=== PATIENT | female | born 1980 ===

== ENCOUNTER 2016-05-03 04:07 | Emergency (ER) | payer OTHER ==
--- NOTE | 2016-05-03 06:34 | ED NURSING NOTES ---
Clinical Report - Nurses [facility] [address] [place] [address] 05/03/2016 4:07 Patient: SHAWNA ROSALES TRIAGE Triage time 04:14. Acuity: LEVEL 4. Chief Complaint: ABDOMINAL PAIN, NAUSEA, VOMITING and DIARRHEA. --04:18 Krista Ham R.N. 04:14 05/03/16. BP: 178/101. HR: 73. RR: 17 (regular and unlabored). O2 saturation: 100% on room air. Temp: 98.7 F (oral). Negron-Dunbar pain scale: 6/10. --04:18 Krista Ham R.N. Weight: 81.6 kg stated. Height/Length: 60 inches Per Patient. BMI: 35.1. --04:16 Krista Ham R.N. Medications None. --04:16 Krista Ham R.N. Allergies Penicillins. --04:16 Krista Ham R.N. Omeprazole. --04:16 Krista Ham R.N. History Arrived by private vehicle. Primary physician ([facility]). Onset. (about 3 days ago). She has had fever (yesterday). 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 (1600mg Ibuprofen at 2300). PAST MEDICAL HX: Immunizations: up-to-date. Last normal menstrual period was 1 week ago. SOCIAL HX: Never smoker. No alcohol use or drug use. NUTRITIONAL RISK ASSESSMENT: The nutritional risk assessment revealed no deficiencies. FUNCTIONAL ASSESSMENT: Functional assessment: no impairments noted. --04:18 Krista Ham R.N. PROBLEMS: Myofascial Strain. Fall. Abdominal Pain. --04:16 Krista Ham R.N. ADDITIONAL SURGERIES: Cholecystectomy. . Tubal Ligation. --04:16 Krista Ham R.N. Interventions ID band on patient. To treatment room. --04:18 Krista Ham R.N. PHYSICAL ASSESSMENT Ambulatory to room. Patient gowned. GENERAL / NEURO / PSYCH: Alert. Oriented X 4. Appears in no acute distress. Appears in pain. HEENT: Mucous membranes are pink. RESPIRATORY: Respirations not labored. CVS: Capillary refill less than 2 seconds. SKIN: Skin is warm and dry. --04:18 Krista Ham R.N. NURSING PROGRESS NOTES Head of bed elevated. Two patient identifiers checked. Call light placed in reach. Side rails up x 1. Bed placed in lowest position. Brakes of bed on. --04:18 Krista Ham R.N. Patient ready for evaluation- chart flagged. --04:18 Krista Ham R.N. 04:30 05/03/2016 Site #1 started via IV in the right hand with an 20g angiocath, with aseptic technique and good blood return. Blood drawn: rainbow set. Labeled in the presence of the patient and sent to the lab. Saline lock flushed with 10 mL saline. --04:43 Krista Ham R.N. 04:35 05/03/2016 Started bag #1 1000 mL IV Fluids IV NS (Saline); bolus of 500 mL over 30 minute(s) then at 125 mL/hr via site #1 via IV pump. Allergies verified and confirmed 5 rights. IV patency established. IV site checked: no pain, redness, or swelling. IV flushed thoroughly pre- and post-medication administration. --04:43 Krista Ham R.N. 04:40 05/03/2016 Zofran (Ondansetron HCl) IVP 4 mg given over 30 second(s) via site #1. Allergies verified and confirmed 5 rights. IV patency established. IV site checked: no pain, redness, or swelling. IV flushed thoroughly pre- and post-medication administration. IVP given by RN. --04:44 Krista Ham R.N. ( pt informed of need for urine, pt unable to produce urine at this time.). --04:45 Krista Ham R.N. GI / : The patient reports nausea is still present. Denies vomiting. --04:54 Krista Ham R.N. ( pt presses call light, asking for additional warm blanket and pain medication (5th request). Pt informed that the EDMD has not ordered any pain medication yet and that we still need urine to complete tests. pt states she can not go pee yet. Warm blanket placed on pt, lights dimmed for pt comfort.). --05:23 Krista Ham R.N. 05:29- pt ambulates to restroom to obtain urine sample. normal gait, no obvious distress. --05:30 Krista Ham R.N. 05:35 05/03/2016 Site #1 removed (pt removed own IV). --05:35 Krista Ham R.N. ( 0530- pt comes out of bathroom and repeatedly asks to leave & for IV to be removed. Explained to pt that I need to send the urine to LAB and speak to the MD. Pt demanding to leave now. Pt informed that she is welcome to leave AMA, but that insurance might not cover the charges if she does. Pt states she will wait. after Urine sent to lab, I went back into pts room to inform her that the MD wants her to wait until all tests are complete. Pt had taken out own IV and was holding paper towel over site. IV fluids dripping on floor and pt states "well it was hurting". pt states she will wait for results and discharge instructions. Pt appears in no obvious distress at this time.). --05:40 Krista Ham R.N. DISPOSITION / DISCHARGE 06:35- upon entering pt's room for discharge teaching, lynnettewn found on bed, patient gone. --06:42 Krista Ham R.N. The patient left the Emergency Department without completion of treatment. Gown found on bed. Unable to locate patient. The patient did not notify the ED staff prior to leaving the department. Notified the ED physician of patient departure. The patient left the Emergency Department ambulatory and via private vehicle. The patient eloped. --06:43 Krista Ham R.N. Locked/Released at 05/03/2016 6:43 by Krista Ham R.N.
--- NOTE | 2016-05-03 06:34 | ED ORDER SUMMARY ---
..... Patient: SHAWNA ROSALES OrderSheet [facility] VisitID: [id number] [address] [place] [address] 35y, F Registration Date/Time: 05/03/2016 ORDER SHEET Weight: 81.6 kg (stated) Allergies: Penicillins, Omeprazole GENERAL ORDERS: CBC w Diff Urgent (04:18 05/03/2016 Pranay CHADWICK) (Ack 4:21 CHagerty ER Hide Dyer) (4:44 RCollier R.N.) CMP Urgent (04:18 05/03/2016 Pranay CHADWICK) (Ack 4:21 CHagerty ER Hide Dyer) (4:44 RCollier R.N.) UA-Culture if indicated Urgent (04:18 05/03/2016 Pranay CHADWICK) (Ack 4:21 CHagerty ER Hide Dyer) (5:40 RCollier R.N.) Amylase Urgent (04:05/03/2016 Pranay CHADWICK) (Ack 4:21 CHagerty ER Hide Dyer) (4:44 RCollier R.N.) Lipase Urgent (04:18 05/03/2016 Pranay CHADWICK) (Ack 4:21 CHagerty ER Hide Dyer) (4:44 RCollier R.N.) Urine Urgent (04:18 05/03/2016 Pranay CHADWICK) (Ack 4:21 CHagerty ER Hide Dyer) (5:40 RCollier R.N.) Urine Drug Screen Urgent (05:13 05/03/2016 Pranay CHADWICK) (Ack 5:14 CHagerty ER Hide Dyer) (5:40 RCollier R.N.) MEDICATION ORDERS: IV FLUIDS: IV NS : initial bolus 500 mL (1000 mL/hr), then 125 mL/hr for 4h (NOW); Urgent (04:18 05/03/2016 Pranay CHADWICK) (Ack 4:29 RCollier R.N.) (4:43 RCollier R.N.) Zofran IV 4 mg (NOW) (04:18 05/03/2016 Pranay CHADWICK) (Ack 4:29 RCollier R.N.) (4:44 RCollier R.N.) ORDER SHEET NOTES: [Electronically signed by Krista Ham R.N. (06:43 05/03/2016)] [Electronically signed by Yovany Beebe MD (21:08 05/09/2016)] [Electronically locked/signed by Krista Ham R.N. (06:43 05/03/2016)]
--- NOTE | 2016-05-03 06:34 | ED CLINICAL REPORT ---
Clinical Report - Physicians/Mid Levels [facility] [place] [facility] [address], [place] [address] 05/03/2016 4:07 Patient: SHAWNA ROSALES Time Seen: 04:18. Arrived- By private vehicle. Historian- patient. HISTORY OF PRESENT ILLNESS Chief Complaint: VOMITING and DIARRHEA. This started several days ago and is still present. It was gradual in onset and has been constant and waxing/waning. No recent travel. She has had nausea, vomiting. The vomiting has occurred several times and has been blood-tinged, diarrhea and abdominal pain. No black stools, bloody stools, constipation, flank pain or history of possible bad food exposure. Has not recently been camping or on antibiotics. She has had contact with a sick coworker. They have had similar symptoms. The illness is described as severe. Recent medical care: The patient was seen recently at another facility in a clinic. REVIEW OF SYSTEMS Last normal menstrual period was 1 week ago. She has had fever and chills. No sweats, calf pain, chest pain, cough or difficulty breathing. No pedal edema, palpitations, black stools, bloody stools or urinary problems. All systems otherwise negative, except as recorded above. PAST HISTORY PCP - Dr. Myers at [facility]. Problems: Myofascial Strain. Fall. Abdominal Pain. Additional Surgeries: Cholecystectomy. . Tubal Ligation. Medications: None. Allergies: Omeprazole. Penicillins. SOCIAL HISTORY Never smoker. No alcohol use or drug use. Residence: [place]. FAMILY HISTORY Diabetes in first-degree relative (mother and father) and grandparent. ADDITIONAL NOTES The nursing notes have been reviewed. PHYSICAL EXAM Vital Signs: 05/03/2016 04:14 BP: 178/101. HR: 73. RR: 17. O2 saturation: 100%. Temp: 98.7 F. Negron-Dunbar pain scale: 6/10. Have been reviewed. Appearance: Alert. No acute distress. Eyes: Pupils equal, round and reactive to light. ENT: Pharynx normal. Neck: Neck supple. CVS: Normal heart rate and rhythm. Heart sounds normal. Respiratory: No respiratory distress. Breath sounds normal. Abdomen: Soft. Abnormal bowel sounds: hyperactive. No organomegaly. No mass. Obese. Back: Normal inspection. No CVA tenderness. Skin: Skin warm and dry. Extremities: Extremities exhibit normal ROM. No calf tenderness. No lower extremity edema. LABS, X-RAYS, AND EKG Laboratory Tests: UA-Culture if indicated: (WAYLON: 05/03/2016 05:32) ( [facility] 05/03/2016 06:15) Final results Test Result Flag Units (Reference) URINE COLOR YELLOW URINE APPEARANCE SL CLOUDY URINE GLUCOSE TRACE (NEGATIVE) URINE BILIRUBIN NEGATIVE (NEGATIVE) URINE KETONE NEGATIVE (NEGATIVE) URINE SPECIFIC GRAVITY 1.025 (1.010-1.030) URINE PH 7.0 (5.0-8.0) URINE PROTEIN NEGATIVE (NEGATIVE) URINE UROBILINOGEN 0.2 EU/dL (0.2-1.0) URINE NITRITE NEGATIVE (NEGATIVE) URINE BLOOD NEGATIVE (NEGATIVE) URINE LEUK ESTERASE NEGATIVE (NEGATIVE) URINE RBC NONE SEEN rbc/hpf (0-1) URINE WBC 0-1 wbc/hpf (0-1) URINE EPITHELIAL CELLS >15 EPI/hpf (0-5) URINE BACTERIA MODERATE (2+ TO 3+) (NONE SEEN) URINE COMMENT CULT NOT INDICATED PER ADA KEYES NURSE: DO NOT CULTURE, WILL RECOLLECTURINE CULTURES ARE SET-UP BASED ON THE FOLLOWING CRITERIA:POSITIVE NITRITEPOSITIVE LEUKOCYTE ESTERASEGREATER THAN 10 WHITE BLOOD CELLSMODERATE (2+) OR GREATER BACTERIA Urine: (WAYLON: 05/03/2016 05:32) ( [facility] 05/03/2016 05:52) Final results Test Result Flag Units (Reference) URINE NEGATIVE CBC w Diff: (WAYLON: 05/03/2016 04:19) ( [facility] 05/03/2016 05:32) Final results Test Result Flag Units (Reference) WHITE BLOOD COUNT 12.8 H K/uL (4.5-11.5) RED BLOOD COUNT 4.59 M/uL (4.00-5.20) HEMOGLOBIN 13.3 gm/dL (12.0-16.0) HEMATOCRIT 39.8 % (36.0-46.0) MEAN CELL VOLUME 87 fL (80-100) MEAN CORPUSCULAR HGB 29 pg (26-34) MEAN CORPUSCULAR HGB CONC 33 g/dL (31-37) RED CELL DISTRIBUTION WIDTH 15.4 H % (11.6-14.8) PLATELET COUNT 355 K/uL (150-400) NEUTROPHIL % 67.4 % (50-75) LYMPH % 27.3 % (25-40) MONO % 4.5 % (3-14) EOSINOPHIL % 0.5 % (0-4) BASOPHIL % 0.3 % (0-2) CMP: (WAYLON: 05/03/2016 04:15) ( MsgRcvd 05/03/2016 05:32) Final results Test Result Flag Units (Reference) GLUCOSE 151 H mg/dL (70-110) BUN 12 mg/dL (7-18) CREATININE 0.9 mg/dL (0.6-1.3) Estimated GFR >60 mL/min Estimated GFR- >60 mL/min Note: Persistent reduction over 3 months in eGFR<60 mL/min/1.73 m2 defines CKD. Patients with eGFR values>=60 mL/min/1.73 m2 may also have CKD if evidence ofpersistent proteinuria. Additional information may be foundat www.kidney.org. SODIUM 141 mmol/L (136-145) POTASSIUM 3.0 L mmol/L (3.5-5.1) CHLORIDE 106 mmol/L (98-107) CARBON DIOXIDE 22 mmol/L (21-32) CALCIUM 8.1 L mg/dL (8.5-10.1) TOTAL PROTEIN 7.2 g/dL (6.4-8.2) ALBUMIN 3.5 g/dL (3.3-5.0) BILIRUBIN, TOTAL 0.3 mg/dL (0.0-1.0) ALKALINE PHOSPHATASE 64 U/L (46-116) AST (SGOT) 21 U/L (15-37) ALT (SGPT) 24 U/L (12-78) LIPASE 334 U/L (73-393) AMYLASE 45 U/L (25-115) . PROGRESS AND PROCEDURES Course of Care: Patient is stable. Patient/family counseled. Old medical records reviewed. Disposition: Discharged. Condition: stable. CLINICAL IMPRESSION Acute viral gastroenteritis. INSTRUCTIONS Drink plenty of fluids. Warnings: Further evaluation is necessary. GENERAL WARNINGS: Return or contact your physician immediately if your condition worsens or changes unexpectedly, if not improving as expected, or if other problems arise. Prescription Medications: Zofran 4 mg: Take 1 orally every six hours as needed for nausea/vomiting. Dispense ten (10). No refills. Substitution is permissible. Understanding of the discharge instructions verbalized by patient. Follow-up with: [facility], , , [address] [place] [address], [place] [id number] Follow up tomorrow. Call for an appointment. (Electronically signed by Yovany Beebe MD 05/09/2016 21:08)
--- NOTE | 2016-05-03 06:34 | ED ORDER SUMMARY ---
..... Patient: SHAWNA ROSALES OrderSheet [facility] VisitID: [id number] [address] [place] [address] 35y, F Registration Date/Time: 05/03/2016 ORDER SHEET Weight: 81.6 kg (stated) Allergies: Penicillins, Omeprazole GENERAL ORDERS: CBC w Diff Urgent (04:18 05/03/2016 Pranay CHADWICK) (Ack 4:21 CHagerty ER Seat Cover Maker) (4:44 RCollier R.N.) CMP Urgent (04:18 05/03/2016 Pranay CHADWICK) (Ack 4:21 CHagerty ER Seat Cover Maker) (4:44 RCollier R.N.) UA-Culture if indicated Urgent (04:18 05/03/2016 Pranay CHADWICK) (Ack 4:21 CHagerty ER Seat Cover Maker) (5:40 RCollier R.N.) Amylase Urgent (04:05/03/2016 Pranay CHADWICK) (Ack 4:21 CHagerty ER Seat Cover Maker) (4:44 RCollier R.N.) Lipase Urgent (04:18 05/03/2016 Pranay CHADWICK) (Ack 4:21 CHagerty ER Seat Cover Maker) (4:44 RCollier R.N.) Urine Urgent (04:18 05/03/2016 Pranay CHADWICK) (Ack 4:21 CHagerty ER Seat Cover Maker) (5:40 RCollier R.N.) Urine Drug Screen Urgent (05:13 05/03/2016 Pranay CHADWICK) (Ack 5:14 CHagerty ER Seat Cover Maker) (5:40 RCollier R.N.) MEDICATION ORDERS: IV FLUIDS: IV NS : initial bolus 500 mL (1000 mL/hr), then 125 mL/hr for 4h (NOW); Urgent (04:18 05/03/2016 Pranay CHADWICK) (Ack 4:29 RCollier R.N.) (4:43 RCollier R.N.) Zofran IV 4 mg (NOW) (04:18 05/03/2016 Pranay CHADWICK) (Ack 4:29 RCollier R.N.) (4:44 RCollier R.N.) ORDER SHEET NOTES: [Electronically signed by Krista Ham R.N. (06:43 05/03/2016)] [Electronically signed by Yovany Beebe MD (21:08 05/09/2016)] [Electronically locked/signed by Krista Ham R.N. (06:43 05/03/2016)]
--- NOTE | 2016-05-03 06:34 | ED NURSING NOTES ---
Clinical Report - Nurses [facility] [address] [place] [address] 05/03/2016 4:07 Patient: SHAWNA ROSALES TRIAGE Triage time 04:14. Acuity: LEVEL 4. Chief Complaint: ABDOMINAL PAIN, NAUSEA, VOMITING and DIARRHEA. --04:18 Krista Ham R.N. 04:14 05/03/16. BP: 178/101. HR: 73. RR: 17 (regular and unlabored). O2 saturation: 100% on room air. Temp: 98.7 F (oral). Negron-Dunbar pain scale: 6/10. --04:18 Krista Ham R.N. Weight: 81.6 kg stated. Height/Length: 60 inches Per Patient. BMI: 35.1. --04:16 Krista Ham R.N. Medications None. --04:16 Krista Ham R.N. Allergies Penicillins. --04:16 Krista Ham R.N. Omeprazole. --04:16 Krista Ham R.N. History Arrived by private vehicle. Primary physician ([facility]). Onset. (about 3 days ago). She has had fever (yesterday). 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 (1600mg Ibuprofen at 2300). PAST MEDICAL HX: Immunizations: up-to-date. Last normal menstrual period was 1 week ago. SOCIAL HX: Never smoker. No alcohol use or drug use. NUTRITIONAL RISK ASSESSMENT: The nutritional risk assessment revealed no deficiencies. FUNCTIONAL ASSESSMENT: Functional assessment: no impairments noted. --04:18 Krista Ham R.N. PROBLEMS: Myofascial Strain. Fall. Abdominal Pain. --04:16 Krista Ham R.N. ADDITIONAL SURGERIES: Cholecystectomy. . Tubal Ligation. --04:16 Krista Ham R.N. Interventions ID band on patient. To treatment room. --04:18 Krista Ham R.N. PHYSICAL ASSESSMENT Ambulatory to room. Patient gowned. GENERAL / NEURO / PSYCH: Alert. Oriented X 4. Appears in no acute distress. Appears in pain. HEENT: Mucous membranes are pink. RESPIRATORY: Respirations not labored. CVS: Capillary refill less than 2 seconds. SKIN: Skin is warm and dry. --04:18 Krista Ham R.N. NURSING PROGRESS NOTES Head of bed elevated. Two patient identifiers checked. Call light placed in reach. Side rails up x 1. Bed placed in lowest position. Brakes of bed on. --04:18 Krista Ham R.N. Patient ready for evaluation- chart flagged. --04:18 Krista Ham R.N. 04:30 05/03/2016 Site #1 started via IV in the right hand with an 20g angiocath, with aseptic technique and good blood return. Blood drawn: rainbow set. Labeled in the presence of the patient and sent to the lab. Saline lock flushed with 10 mL saline. --04:43 Krista Ham R.N. 04:35 05/03/2016 Started bag #1 1000 mL IV Fluids IV NS (Saline); bolus of 500 mL over 30 minute(s) then at 125 mL/hr via site #1 via IV pump. Allergies verified and confirmed 5 rights. IV patency established. IV site checked: no pain, redness, or swelling. IV flushed thoroughly pre- and post-medication administration. --04:43 Krista Ham R.N. 04:40 05/03/2016 Zofran (Ondansetron HCl) IVP 4 mg given over 30 second(s) via site #1. Allergies verified and confirmed 5 rights. IV patency established. IV site checked: no pain, redness, or swelling. IV flushed thoroughly pre- and post-medication administration. IVP given by RN. --04:44 Krista Ham R.N. ( pt informed of need for urine, pt unable to produce urine at this time.). --04:45 Krista Ham R.N. GI / : The patient reports nausea is still present. Denies vomiting. --04:54 Krista Ham R.N. ( pt presses call light, asking for additional warm blanket and pain medication (5th request). Pt informed that the EDMD has not ordered any pain medication yet and that we still need urine to complete tests. pt states she can not go pee yet. Warm blanket placed on pt, lights dimmed for pt comfort.). --05:23 Krista Ham R.N. 05:29- pt ambulates to restroom to obtain urine sample. normal gait, no obvious distress. --05:30 Krista Ham R.N. 05:35 05/03/2016 Site #1 removed (pt removed own IV). --05:35 Krista Ham R.N. ( 0530- pt comes out of bathroom and repeatedly asks to leave & for IV to be removed. Explained to pt that I need to send the urine to LAB and speak to the MD. Pt demanding to leave now. Pt informed that she is welcome to leave AMA, but that insurance might not cover the charges if she does. Pt states she will wait. after Urine sent to lab, I went back into pts room to inform her that the MD wants her to wait until all tests are complete. Pt had taken out own IV and was holding paper towel over site. IV fluids dripping on floor and pt states "well it was hurting". pt states she will wait for results and discharge instructions. Pt appears in no obvious distress at this time.). --05:40 Krista Ham R.N. DISPOSITION / DISCHARGE 06:35- upon entering pt's room for discharge teaching, lynnettewn found on bed, patient gone. --06:42 Krista aHm R.N. The patient left the Emergency Department without completion of treatment. Gown found on bed. Unable to locate patient. The patient did not notify the ED staff prior to leaving the department. Notified the ED physician of patient departure. The patient left the Emergency Department ambulatory and via private vehicle. The patient eloped. --06:43 Krista Ham R.N. Locked/Released at 05/03/2016 6:43 by Krista Ham R.N.
--- NOTE | 2016-05-09 21:08 | ED DISCHARGE INSTRUCTIONS ---
Patient: SHAWNA ROSALES General Instructions [facility] VisitID: [id number] [place] [address] 35y, F Registration Date/Time: 05/03/2016 Acute viral gastroenteritis. INSTRUCTIONS Drink plenty of fluids. Warnings: Further evaluation is necessary. GENERAL WARNINGS: Return or contact your physician immediately if your condition worsens or changes unexpectedly, if not improving as expected, or if other problems arise. Prescription Medications: Zofran 4 mg: Take 1 orally every six hours as needed for nausea/vomiting. Dispense ten (10). No refills. Substitution is permissible. Understanding of the discharge instructions verbalized by patient. Follow-up with: [facility], , , [address] [place] [address], [place] [address] Follow up tomorrow. Call for an appointment. ADDITIONAL INFORMATION Viral Gastroenteritis (6Yr-Adult) Gastroenteritis is another name for thestomach flu.It is most often caused by a virus that affects the stomach and intestinal tract. Symptoms include stomach cramping and fever, vomiting and/or diarrhea, and can last from 2 to 7 days. The danger from repeated vomiting or diarrhea is dehydration. This is the loss of too much water and minerals from the body. When this occurs, body fluids must be replaced. Antibiotics are not effective for this illness, but simple home treatment will be helpful. Home Care If symptoms are severe, rest at home for the next 24 hours. Avoid tobacco, caffeine, and alcohol use, which can worsen symptoms. Acetaminophen (Tylenol) or ibuprofen (Motrin, Advil) may be usedfor fever or pain unless another medication was prescribed. NOTE: If you have chronic liver or kidney disease or ever had a stomach ulcer or GI bleeding, talk with your doctor before using these medicines. Aspirin should never be used in anyone under 18 years of age who is ill with a fever. It may cause severe liver damage. If medicines for diarrhea or vomiting were prescribed, be sure they are takenonly as directed. If vomiting, drink small amounts of clear fluids (such as water, sports drinks, clear sodas) at frequent intervals to prevent dehydration. Start with 1 to 2 tablespoons every 10 minutes. Once vomiting stops, follow these guidelines: During The First 12 To 24 Hours follow the diet below: Beverages: Sport drinks like Gatorade, soft drinks without caffeine; loco karly, mineral water (plain or flavored), decaffeinated tea and coffee. Soups: Clear broth, consomm and bouillon Desserts: Plain gelatin (Jell-O), Popsicles and fruit juice bars. During The Next 24 Hours you may add the following to the above: Hot cereal, plain toast, bread, rolls, crackers Plain noodles, rice, mashed potatoes, chicken noodle or rice soup Unsweetened canned fruit (avoid pineapple), bananas Limit fat intake to less than 15 grams per day by avoiding margarine, butter, oils, mayonnaise, sauces, gravies, fried foods, peanut butter, meat, poultry, and fish. Limit fiber; avoid raw or cooked vegetables, fresh fruits (except bananas), and bran cereals. Limit caffeine and chocolate. Do not use spices or seasonings except salt. During The Next 24 Hours The patient can gradually resume a normal diet as symptoms lessen. Preventing Spread Hand washing with soap and water is the best way to prevent the spread of viruses. Caregivers should wash their hands before andafter touching the sick person. The sick person, as well as everyone in the family,should wash their hands after using the toilet and before meals. Clean the toilet after each use. People with diarrhea should not prepare food for others. If you are preparing your own foods, wash your hands before and after. Follow Up with your doctor as advised. Call your doctor if you are not improving over the next 2 to 3 days. If a stool (diarrhea) sample was taken, you may call in 2 days (or as directed) for the results. Get Prompt Medical Attention if any of the following occur: Increasing abdominal pain Continued vomiting (unable to keep liquids down) Frequent diarrhea (more than 5 times a day) Blood in vomit or stool (black or red color) Dark urine, reduced urine output, or extreme thirst Weakness, dizziness, fainting Drowsiness, confusion, stiff neck, or seizure Fever of 100.4F (38C) oral or higher, not better with fever medication New rash Ondansetron Oral disintegrating tablet What is this medicine? ONDANSETRON (on BRADEN se rowena) is used to treat nausea and vomiting caused by chemotherapy. It is also used to prevent or treat nausea and vomiting after surgery. How should I use this medicine? These tablets are made to dissolve in the mouth. Do not try to push the tablet through the foil backing. With dry hands, peel away the foil backing and gently remove the tablet. Place the tablet in the mouth and allow it to dissolve, then swallow. While you may take these tablets with water, it is not necessary to do so. Talk to your brick layer regarding the use of this medicine in children. Special care may be needed. What side effects may I notice from receiving this medicine? Side effects that you should report to your doctor or health lpn care manager as soon as possible: allergic reactions like skin rash, itching or hives, swelling of the face, lips, or tongue breathing problems dizziness fast or irregular heartbeat feeling faint or lightheaded, falls fever and chills swelling of the hands and feet tightness in the chest Side effects that usually do not require medical attention (report to your doctor or health lpn care manager if they continue or are bothersome): constipation or diarrhea headache What may interact with this medicine? Do not take this medicine with any of the following medications: -apomorphine -cisapride -dofetilide -dronedarone -pimozide -thioridazine -ziprasidone This medicine may also interact with the following medications: -carbamazepine -phenytoin -rifampicin -tramadol -other medicines that prolong the QT interval (cause an abnormal heart rhythm) What if I miss a dose? If you miss a dose, take it as soon as you can. If it is almost time for your next dose, take only that dose. Do not take double or extra doses. Where should I keep my medicine? Keep out of the reach of children. Store between 2 and 30 degrees C (36 and 86 degrees F). Throw away any unused medicine after the expiration date. What should I tell my health care provider before I take this medicine? They need to know if you have any of these conditions: heart disease history of irregular heartbeat liver disease low levels of magnesium or potassium in the blood an unusual or allergic reaction to ondansetron, granisetron, other medicines, foods, dyes, or preservatives or trying to get breast-feeding What should I watch for while using this medicine? Check with your doctor or health lpn care manager as soon as you can if you have any sign of an allergic reaction. You have been given the following additional information: Gastroenteritis, Viral (6Y-Adult) Ondansetron Oral disintegrating tablet (Electronically signed by Yovany Beebe MD 05/09/2016 21:08)
--- NOTE | 2016-05-09 21:08 | ED MAR SUMMARY ---
..... Medication Administration Record [facility] [address] [place] [address] Patient: SHAWNA ROSALES Visit ID: [id number] 35y, F Weight: 81.6 kg Height/Length: 60 in BMI: 35.1 ALLERGIES: Omeprazole, Penicillins Start 04:35 05/03/2016 Krista Ham R.N. Medication Administered: IV NS (SALINE), Dose: IV Fluids, Rate: 125 mL/hr, Bolus: 500 mL over 30 minute(s), Dispensed: 1000 mL bag, Site: #1 right hand. Medication Ordered: IV NS : initial bolus 500 mL (1000 mL/hr), then 125 mL/hr for 4h (NOW); Urgent. Given 04:40 05/03/2016 Krista Ham RLilia Medication Administered: ZOFRAN [IVP] (ONDANSETRON HCL), Dose: 4 mg IVP over 30 second(s), Site: #1 right hand. Medication Ordered: Zofran IV 4 mg (NOW).
--- NOTE | 2016-05-09 21:08 | ED MED RECONCILIATION SUMMARY ---
Patient: SHAWNA ROSALES Medication Reconciliation Report [facility] VisitID: [id number] [address] [place] [address] 35[place], F Registration Date/Time: 05/03/2016 Weight: 81.6 kg Height/Length: 60 in. BMI: 35.1 ALLERGIES: Omeprazole, Penicillins The patient's Home Medications are listed below: NONE. The source(s) of the original Home Medication information: Not obtained. The following Medications were given to the patient in the Emergency Department: IV NS IV Fluids bolus 500 mL over 30 minute(s), then 125 mL/hr, administered: 05/03/2016 4:35:00 AM Zofran [IVP] IVP 4 mg, administered: 05/03/2016 4:40:00 AM The following Medications were prescribed to the patient: Zofran 4 mg: Take 1 orally every six hours as needed for nausea/vomiting. Dispense ten (10). No refills. Substitution is permissible. -- Yovany Beebe MD
--- NOTE | 2016-05-09 21:08 | ED DISCHARGE INSTRUCTIONS ---
Patient: SHAWNA ROSALES General Instructions [facility] VisitID: [id number] [place] [address] 35y, F Registration Date/Time: 05/03/2016 Acute viral gastroenteritis. INSTRUCTIONS Drink plenty of fluids. Warnings: Further evaluation is necessary. GENERAL WARNINGS: Return or contact your physician immediately if your condition worsens or changes unexpectedly, if not improving as expected, or if other problems arise. Prescription Medications: Zofran 4 mg: Take 1 orally every six hours as needed for nausea/vomiting. Dispense ten (10). No refills. Substitution is permissible. Understanding of the discharge instructions verbalized by patient. Follow-up with: [facility], , , [address] [place] [address], [place] [id number] Follow up tomorrow. Call for an appointment. ADDITIONAL INFORMATION Viral Gastroenteritis (6Yr-Adult) Gastroenteritis is another name for thestomach flu.It is most often caused by a virus that affects the stomach and intestinal tract. Symptoms include stomach cramping and fever, vomiting and/or diarrhea, and can last from 2 to 7 days. The danger from repeated vomiting or diarrhea is dehydration. This is the loss of too much water and minerals from the body. When this occurs, body fluids must be replaced. Antibiotics are not effective for this illness, but simple home treatment will be helpful. Home Care If symptoms are severe, rest at home for the next 24 hours. Avoid tobacco, caffeine, and alcohol use, which can worsen symptoms. Acetaminophen (Tylenol) or ibuprofen (Motrin, Advil) may be usedfor fever or pain unless another medication was prescribed. NOTE: If you have chronic liver or kidney disease or ever had a stomach ulcer or GI bleeding, talk with your doctor before using these medicines. Aspirin should never be used in anyone under 18 years of age who is ill with a fever. It may cause severe liver damage. If medicines for diarrhea or vomiting were prescribed, be sure they are takenonly as directed. If vomiting, drink small amounts of clear fluids (such as water, sports drinks, clear sodas) at frequent intervals to prevent dehydration. Start with 1 to 2 tablespoons every 10 minutes. Once vomiting stops, follow these guidelines: During The First 12 To 24 Hours follow the diet below: Beverages: Sport drinks like Gatorade, soft drinks without caffeine; loco karly, mineral water (plain or flavored), decaffeinated tea and coffee. Soups: Clear broth, consomm and bouillon Desserts: Plain gelatin (Jell-O), Popsicles and fruit juice bars. During The Next 24 Hours you may add the following to the above: Hot cereal, plain toast, bread, rolls, crackers Plain noodles, rice, mashed potatoes, chicken noodle or rice soup Unsweetened canned fruit (avoid pineapple), bananas Limit fat intake to less than 15 grams per day by avoiding margarine, butter, oils, mayonnaise, sauces, gravies, fried foods, peanut butter, meat, poultry, and fish. Limit fiber; avoid raw or cooked vegetables, fresh fruits (except bananas), and bran cereals. Limit caffeine and chocolate. Do not use spices or seasonings except salt. During The Next 24 Hours The patient can gradually resume a normal diet as symptoms lessen. Preventing Spread Hand washing with soap and water is the best way to prevent the spread of viruses. Caregivers should wash their hands before andafter touching the sick person. The sick person, as well as everyone in the family,should wash their hands after using the toilet and before meals. Clean the toilet after each use. People with diarrhea should not prepare food for others. If you are preparing your own foods, wash your hands before and after. Follow Up with your doctor as advised. Call your doctor if you are not improving over the next 2 to 3 days. If a stool (diarrhea) sample was taken, you may call in 2 days (or as directed) for the results. Get Prompt Medical Attention if any of the following occur: Increasing abdominal pain Continued vomiting (unable to keep liquids down) Frequent diarrhea (more than 5 times a day) Blood in vomit or stool (black or red color) Dark urine, reduced urine output, or extreme thirst Weakness, dizziness, fainting Drowsiness, confusion, stiff neck, or seizure Fever of 100.4F (38C) oral or higher, not better with fever medication New rash Ondansetron Oral disintegrating tablet What is this medicine? ONDANSETRON (on BRADEN se rowena) is used to treat nausea and vomiting caused by chemotherapy. It is also used to prevent or treat nausea and vomiting after surgery. How should I use this medicine? These tablets are made to dissolve in the mouth. Do not try to push the tablet through the foil backing. With dry hands, peel away the foil backing and gently remove the tablet. Place the tablet in the mouth and allow it to dissolve, then swallow. While you may take these tablets with water, it is not necessary to do so. Talk to your dope firer regarding the use of this medicine in children. Special care may be needed. What side effects may I notice from receiving this medicine? Side effects that you should report to your doctor or health career center director as soon as possible: allergic reactions like skin rash, itching or hives, swelling of the face, lips, or tongue breathing problems dizziness fast or irregular heartbeat feeling faint or lightheaded, falls fever and chills swelling of the hands and feet tightness in the chest Side effects that usually do not require medical attention (report to your doctor or health career center director if they continue or are bothersome): constipation or diarrhea headache What may interact with this medicine? Do not take this medicine with any of the following medications: -apomorphine -cisapride -dofetilide -dronedarone -pimozide -thioridazine -ziprasidone This medicine may also interact with the following medications: -carbamazepine -phenytoin -rifampicin -tramadol -other medicines that prolong the QT interval (cause an abnormal heart rhythm) What if I miss a dose? If you miss a dose, take it as soon as you can. If it is almost time for your next dose, take only that dose. Do not take double or extra doses. Where should I keep my medicine? Keep out of the reach of children. Store between 2 and 30 degrees C (36 and 86 degrees F). Throw away any unused medicine after the expiration date. What should I tell my health care provider before I take this medicine? They need to know if you have any of these conditions: heart disease history of irregular heartbeat liver disease low levels of magnesium or potassium in the blood an unusual or allergic reaction to ondansetron, granisetron, other medicines, foods, dyes, or preservatives or trying to get breast-feeding What should I watch for while using this medicine? Check with your doctor or health career center director as soon as you can if you have any sign of an allergic reaction. You have been given the following additional information: Gastroenteritis, Viral (6Y-Adult) Ondansetron Oral disintegrating tablet (Electronically signed by Yovany Beebe MD 05/09/2016 21:08)
--- NOTE | 2016-05-09 21:08 | ED MED RECONCILIATION SUMMARY ---
Patient: SHAWNA ROSALES Medication Reconciliation Report [facility] VisitID: [id number] [address] [place] [address] 35y, F Registration Date/Time: 05/03/2016 Weight: 81.6 kg Height/Length: 60 in. BMI: 35.1 ALLERGIES: Omeprazole, Penicillins The patient's Home Medications are listed below: NONE. The source(s) of the original Home Medication information: Not obtained. The following Medications were given to the patient in the Emergency Department: IV NS IV Fluids bolus 500 mL over 30 minute(s), then 125 mL/hr, administered: 05/03/2016 4:35:00 AM Zofran [IVP] IVP 4 mg, administered: 05/03/2016 4:40:00 AM The following Medications were prescribed to the patient: Zofran 4 mg: Take 1 orally every six hours as needed for nausea/vomiting. Dispense ten (10). No refills. Substitution is permissible. -- Yovany Beebe MD
--- NOTE | 2016-05-09 21:08 | ED MAR SUMMARY ---
..... Medication Administration Record [facility] [address] [place] [address] Patient: SHAWNA ROSALES Visit ID: [id number] 35y, F Weight: 81.6 kg Height/Length: 60 in BMI: 35.1 ALLERGIES: Omeprazole, Penicillins Start 04:35 05/03/2016 Krista Ham R.N. Medication Administered: IV NS (SALINE), Dose: IV Fluids, Rate: 125 mL/hr, Bolus: 500 mL over 30 minute(s), Dispensed: 1000 mL bag, Site: #1 right hand. Medication Ordered: IV NS : initial bolus 500 mL (1000 mL/hr), then 125 mL/hr for 4h (NOW); Urgent. Given 04:40 05/03/2016 Krista Ham RLilia Medication Administered: ZOFRAN [IVP] (ONDANSETRON HCL), Dose: 4 mg IVP over 30 second(s), Site: #1 right hand. Medication Ordered: Zofran IV 4 mg (NOW).
== END 2016-05-03 06:35 | disposition home or self-care (01) ==
LOC: ED SRH 04:07
DX: A08.4 Viral intestinal infection, unspecified (principal); Z88.5 Allergy status to narcotic agent; Z88.8 Allergy status to other drugs, medicaments and biological substances
CPT/HCPCS: 90004; 90100; 91400; 92235; 92530; 92760; 92761; 92762; 92763; 92764; 92765; 92766; 92767; 93070; 95059